=== PATIENT | female | born 1995 | race Caucasian/White ===

== ENCOUNTER 2018-09-08 12:57 | Emergency (ER) | payer SELFPAY ==
[~2018-09-08] VITALS: Ht 167.6 cm; Wt 72.7 kg
[~2018-09-08 12:57] MED LIST: FLEXERIL PO; KEFLEX500 MG PO; LORTAB 7.5-3251 TAB PO; MOTRIN600 MG/TAB PO; NAPROSYN500 MG PO; PRENATAL3 PO; ZOFRAN4 MG/TAB PO
[2018-09-08] MEDS ORDERED: BACTRIM DS1 TAB PO (14:05)
[2018-09-08] MEDS ORDERED: CEPHALEXIN500 M1 PO (14:05)
[2018-09-08 14:20] VITALS: BP 128/64
== END 2018-09-08 14:20 | disposition home or self-care (01) | DRG 603 ==
LOC: ED 12:57
DX: L03.116 Cellulitis of left lower limb (principal); R11.0 Nausea; M25.472 Effusion, left ankle; B95.61 Methicillin susceptible Staphylococcus aureus infection as the cause of diseases classified elsewhere

== ENCOUNTER 2024-06-15 11:34 | Emergency (ER) | payer OTHER ==
[~2024-06-15] VITALS: Ht 167.6 cm; Wt 86.0 kg
[2024-06-15] VITALS (8 sets, daily range): BP systolic 89–114; BP diastolic 45–74
[~2024-06-15 11:34] MED LIST changes: +BACTRIM DS1 TAB PO; +CEPHALEXIN500 M1 PO
[2024-06-15] MEDS ORDERED: DEXAMETHASONE SOD. PHOSPHATE 10 MG/ML VIAL IV ONE (13:00)
[2024-06-15] MEDS ORDERED: KETOROLAC TROMETHAMINE 30 MG/ML SDV IM ONE (13:00)
[2024-06-15] MEDS ORDERED: OSELTAMIVIR PHOSPHATE 75 MG/TAB CAP PO ONE (13:20)
[2024-06-15] MEDS ORDERED: TAM75CAP PO (13:54)
== END 2024-06-15 14:17 | disposition home or self-care (01) ==
LOC: ED 11:34
DX: J10.1 Influenza due to other identified influenza virus with other respiratory manifestations (principal); Z20.822 Contact with and (suspected) exposure to COVID-19